=== PATIENT | male | born 1940 | race Caucasian/White ===

== ENCOUNTER 2017-02-21 21:22 | Observation (INO) | payer MEDICARE, OTHER ==
[2017-02-21] MEDS ORDERED: ACETAMINOPHEN 325 MG TABLET PO ONE (22:34)
[2017-02-21 22:35] LABS: BASOPHILS 0.5 % (0.0-2.0); EOSINOPHILS 0.2 % (0.0-6.0); HEMATOCRIT 29.3 % (42.0-54.0); HEMOGLOBIN 9.7 g/dL (14.0-18.0); LYMPHOCYTES 2.5 % (20.0-40.0); LYMPHOCYTES# 0.1 X 10^3uL (0.8-3.8); MEAN CELL VOLUME 90.1 fL (80.0-100.0); MEAN CORPUS. HGB CONCENTRATION 33.1 g/dL (32.0-36.0); MEAN CORPUSCULAR HEMOGLOBIN 29.9 pg (29.0-35.0); MEAN PLATELET VOLUME 9.1 fL (7.4-10.4); MONOCYTES 2.8 % (2.0-10.0); MONOCYTES# 0.1 X 10^3uL (0.2-1.0); NEUTROPHILS# 2.2 X 10^3uL (2.6-6.7); PLATELET COUNT 62 X 10^3uL (130-440); RED BLOOD COUNT 3.25 X 10^6uL (4.20-6.10); RED CELL DISTRIBUTION WIDTH 19.2 % (11.5-14.5); WHITE BLOOD COUNT 2.5 X 10^3uL (3.9-10.7)
[2017-02-21 22:38] LABS: LACTATE 1.6 mmol/L (0.7-2.1)
[2017-02-21 22:41] LABS: BLOOD UREA NITROGEN 15 mg/dL (9-20); CHLORIDE 102 mmol/L (98-107); CREATININE 0.6 mg/dL (0.7-1.3); EST GLOMERULAR FILTRATION RATE > 60 mL/min; GLUCOSE 164 mg/dL (70-100); POTASSIUM 3.9 mmol/L (3.5-5.1); SODIUM 138 mmol/L (137-145)
[2017-02-21 22:42] LABS: ALBUMIN 3.2 g/dL (3.5-5.0); ALKALINE PHOSPHATASE 108 U/L (38-126); ALT 31 U/L (21-72); AST 39 U/L (17-59); BILIRUBIN, DIRECT 0.1 mg/dL (0.0-0.4); BILIRUBIN, TOTAL 0.6 mg/dL (0.2-1.3); CALCIUM 8.2 mg/dL (8.4-10.2); TOTAL PROTEIN 6.9 g/dL (6.3-8.2)
[2017-02-21 22:43] LABS: LIPASE < 10 U/L (23-300)
[2017-02-21] MEDS ORDERED: HOME MEDICATION LIST NEEDED 1 EA EACH MISC ONE (22:57)
[2017-02-21] MEDS ORDERED: ACETAMINOPHEN 325 MG TABLET PO PRN (22:57)
[2017-02-21] MEDS ORDERED: PIPERACILLIN /TAZO 4.5 GM/10 ML VIAL IV ONE (22:59)
[2017-02-21] MEDS ORDERED: NORMAL SALINE ADDVANTAGE 100 ML IV ONE (22:59)
[2017-02-21] MEDS ORDERED: NORMAL SALINE 1,000 ML IV SCH (23:00)
[2017-02-21 23:19] LABS: LYMPHOCYTE % (Manual) 6 % (20.0-40.0); MONOCYTE % (Manual) 4 % (2.0-10.0); NEUTROPHIL % (Manual) 90 % (54.0-75.0)
[2017-02-21 23:20] LABS: PLATELET ESTIMATE DECREASED
--- NOTE | 2017-02-21 23:25 | ER NURSING DOCUMENTATION ---
Nurse's Notes [facility] Name:Silverio Booker Age:76 yrs Sex:Male :1940 Arrival Date:02/21/2017 Time:21:22 Bed1 Private MD:Radha Miller Diagnosis:Neutropenia;Fever Presentation: 02/21 21:25 Acuity: PABLO 3 21:41 Presenting complaint: Patient states: Pt finished last round of radiation today along with a saline infusion. He's been feeling run down today, achy and has had less of an appetite than usual. Pt states at home he had a "fever" of 102.7 and the it was back down to 98.0 and up again. PT has a wet cough which he has had for 5 weeks. Pt was hospitalized in September for a staph infection in his port, which was then removed cleaned out and a picc line was placed. Transition of care: Home. 21:41 Method Of Arrival: Private Vehicle Triage Assessment: 21:51 Pertinent positives: cough, headache. General: Appears in no apparent distress, Behavior is cooperative. Pain: Denies pain. EENT: Oral mucosa is dry. Neuro: Level of Consciousness is awake, alert, obeys commands. Cardiovascular: Capillary refill < 3 seconds Chest pain is denied. Respiratory: Airway is patent Respiratory effort is even, unlabored, Respiratory pattern is regular, symmetrical, Reports cough that is Denies shortness of breath. GI: Abdomen is non- distended Bowel sounds present X 4 quads. Denies diarrhea, nausea, vomiting. : No deficits noted. Derm: Skin is intact, is healthy with good turgor, Skin is pink, warm & dry. Historical: - Allergies: No known drug Allergies; - Home Meds: 1. acetaminophen 325 mg oral tab 1 tab every 4-6 hours as needed 2. ascorbate calcium oral 3. calcium carbonate 1,000 mg oral tab 4. hydrocodone-acetaminophen 7.5-500 mg/15 mL(15 mL) oral soln 15 mL every 4 hours as needed for pain 5. lorazepam 0.5 mg oral tab 1 tab 3 times per day 6. Zofran 8 mg oral tab 1 tab every 8 hours 7. Protonix 40 mg oral grps 1 packet once daily 8. Compazine Oral 10 mg tablet Q8H 9. Reclast 5mg/100ml - PMHx: ADENOCARCINOMA of GASTROESOPHAGEAL JUNCTION; MALIGNANT NEOPLASM OF PANCREAS; HYPOXIA; GERD; SHORT BOWEL; EMPHYSEMA; OSTEOPENIA; DYSPHAGEA; - PSHx: WHIPPLE - PANCREATECTOMY; Cholecysectomy; HERNIA REPAIR; FEEDING TUBE REPLACEMENT AND REMOVAL; - Tetanus: unknown. - Ebola Screening: : Patient negative for fever greater than or equal to 101.5 degrees Fahrenheit, and additional compatible Ebola Virus Disease symptoms. - Immunization history: Flu Vaccine < 1 year. - Social history: Smoking status: Patient states former smoker of tobacco. Screenin:34 Infectious Disease Risk None. Abuse screen: Denies threats or abuse. Denies injuries rh from another. Nutritional screening: Difficulty chewing/swallowing? Yes. Assessment: 22:34 See Triage Assessment done by same RN. rh Vital Signs: 21:54 BP 113 / 52; Pulse 81; Resp 20; Temp 98.3(O); Pulse Ox 96% on 2 lpm NC; Weight 49.44 rh kg; Height 5 ft. 7 in. (170.18 cm); Pain 2/10; 22:15 Temp 101.4(TE); rh 22:30 BP 123 / 59; Pulse 71; Resp 18; Pulse Ox 97% on 2 lpm NC; rh 23:22 BP 99 / 57; Pulse 68; Resp 18; Temp 100.9(TE); Pulse Ox 98% on 2 lpm NC; Pain 1/10; rh 21:54 Body Mass Index 17.07 (49.44 kg, 170.18 cm) rh ED Course: 21:10 Accessed PICC line and blood collected. Clean & dry. Dressing intact. Flushes easily. rh 21:24 Patient arrived in ED. ma1 21:24 Radha Miller MD is Private Physician. ma1 21:25 Esthela Lowe is Primary Nurse. rh 21:25 Triage completed. rh 21:30 Valuables Remains with patient Patient has correct armband on for positive rh identification. Placed in gown. Bed in low position. Call light in reach. Side rails up X 1. vehicle monitor technician on. Pulse ox on. NIBP on. 21:34 Notified ED Physician of patient's arrival and chief complaint. Dr. Hill notified. rh 21:35 Oxygen Oxygen administration via nasal cannula @ 2L/min. rh 21:51 Justin Hill MD is Attending Physician. jm 22:15 First set of blood cultures drawn by me. rh 22:24 Port Xray Completed. tt 22:25 CHEST; SINGLE VIEW [id number] In Process Unspecified. EDMS 22:35 Urine collected. Voided. rh 22:59 Second set of blood cultures drawn by me. rh 23:06 Dave Hahn MD is Admitting Physician. Administered Medications: 22:14 Drug: NS 0.9% 1000 ml; Route: IV; Rate: bolus; Site: left antecubital; rh 23:23 Follow up: IV Status: Infusion continued upon admission; IV Intake: 600ml rh 22:34 Drug: Acetaminophen 975 mg; Route: PO; rh 22:42 Follow up: Response: No adverse reaction rh 23:00 Drug: Zosyn - Piperacillin-Tazobactam 4.5 grams; Route: IVPB; Site: left antecubital; rh 23:23 Follow up: IV Status: Infusion continued upon admission; IV Intake: 50ml rh Point of Care Testing: Urine Dip: 22:35 pH: 6.0; ; Specific [place]: 1.030; Ketones: Negative; Glucose: Negative; Protein: rh Positive (+); Leukocytes: Negative; Nitrite: Negative ; Blood: Negative; Bilirubin: Negative ; Urobilinogen: Normal Intake: 23:23 IV: 600ml; Total: 600ml. rh 23:23 IV: 50ml; Total: 650ml. rh Output: 23:23 Urine: 50ml (Voided); Total: 50ml. rh Outcome: 23:06 Decision to Admit by Provider. 23:22 Admitted to Med/surg accompanied by nurse, via stretcher, with oxygen, with chart. rh 23:22 Condition: stable 23:22 Discharge Assessment: Patient awake, alert and oriented x 3. No cognitive and/or functional deficits noted. Patient verbalized understanding of disposition instructions. 23:22 Instructed on need to admit 23:24 Patient left the ED. rh Signatures: Dispatcher [employer] EDJustin Kiran MD MD jm Terriere, Tracy tt Hofsess, Rachel Sara Hinds
--- NOTE | 2017-02-21 23:25 | ER PHYSICIAN DOCUMENTATION ---
Physician Documentation [facility] Name:Silverio Booker Age:76 yrs Sex:Male :1940 Arrival Date:02/21/2017 Time:21:22 Bed1 Private MD:Radha Miller ED, John Disposition: 02/21/17 23:06 Admit ordered for Dave Hahn. Preliminary diagnosis are Neutropenia, Fever. - Bed requested for Medical/Surgical. - Condition is Fair. - Problem is new. - Symptoms are unchanged. 23 HR OBS Yes HPI: 02/21 22:09 This 76 yrs old Male presents to ER via Private Vehicle with complaints of jm Fever. 22:09 The patient reports fever, that was measured at 102 degrees Fahrenheit. Onset: The jm symptom(s)/episode began/occurred today. Modifying factors: there are no obvious modifying factors. Associated signs and symptoms: Pertinent positives: chills, malaise. Severity of symptoms: in the emergency department the symptoms are unchanged. The patient has not experienced similar symptoms in the past. The patient has been recently seen by a physician: earlier today, with different complaint(s), Had radiation done today. . 76 yo M w hx of esophageal and pancreatic cancer s/p chemo on Sunday and radiation today, here for a fever that has been up and down all day. Pt's only sx is generalized weakness and fatigue. . Historical: - Allergies: No known drug Allergies; - Home Meds: 1. acetaminophen 325 mg oral tab 1 tab every 4-6 hours as needed 2. ascorbate calcium oral 3. calcium carbonate 1,000 mg oral tab 4. hydrocodone-acetaminophen 7.5-500 mg/15 mL(15 mL) oral soln 15 mL every 4 hours as needed for pain 5. lorazepam 0.5 mg oral tab 1 tab 3 times per day 6. Zofran 8 mg oral tab 1 tab every 8 hours 7. Protonix 40 mg oral grps 1 packet once daily 8. Compazine Oral 10 mg tablet Q8H 9. Reclast 5mg/100ml - PMHx: ADENOCARCINOMA of GASTROESOPHAGEAL JUNCTION; MALIGNANT NEOPLASM OF PANCREAS; HYPOXIA; GERD; SHORT BOWEL; EMPHYSEMA; OSTEOPENIA; DYSPHAGEA; - PSHx: WHIPPLE - PANCREATECTOMY; Cholecysectomy; HERNIA REPAIR; FEEDING TUBE REPLACEMENT AND REMOVAL; - Tetanus: unknown. - Ebola Screening: : Patient negative for fever greater than or equal to 101.5 degrees Fahrenheit, and additional compatible Ebola Virus Disease symptoms. - Immunization history: Flu Vaccine < 1 year. - Social history: Smoking status: Patient states former smoker of tobacco. ROS: 22:14 Constitutional: Positive for fatigue, fever, malaise. jm 22:14 ENT: Negative for injury or acute deformity, rhinorrhea, sinus congestion, sinus pain, sore throat. 22:14 Cardiovascular: Negative for chest pain, edema. 22:14 Respiratory: Positive for cough, chronic. 22:14 Abdomen/GI: Negative for abdominal pain, nausea, vomiting, diarrhea. 22:14 Back: Negative for injury or acute deformity, decreased range of motion. 22:14 : Negative for urinary symptoms. 22:14 Skin: Negative for rash. 22:14 Neuro: Positive for weakness, Negative for dizziness, headache. 22:14 Psych: Negative for depression, drug dependence, alcohol dependence. 22:14 Hematologic/Lymphatic: Negative for anemia, abnormal bleeding. 22:14 All other systems are negative. Exam: 22:18 Constitutional: The patient appears in no acute distress, alert, awake, comfortable. jm 22:18 Eyes: Periorbital structures: appear normal, Conjunctiva: normal. 22:18 ENT: Mouth: is normal, Posterior pharynx: is normal. 22:18 Neck: ROM/movement: is normal, Lymph nodes: no appreciated lymphadenopathy. 22:18 Cardiovascular: Rate: normal, Rhythm: regular. 22:18 Respiratory: Respirations: normal, Breath sounds: are normal. 22:18 Abdomen/GI: Bowel sounds: normal, Palpation: abdomen is soft and non-tender. 22:18 Back: pain, is absent, CVA tenderness, is absent. 22:18 : CVA tenderness, is absent, Bladder: tenderness, is not appreciated. 22:18 Musculoskeletal/extremity: Pulses: are normal with no appreciated deficits, Weight bearing: able to fully bear weight. 22:18 Skin: Appearance: Color: normal in color, no rash present. 22:18 Neuro: Orientation: is normal, Mentation: is normal, Memory: is normal. 22:18 Psych: Behavior/mood is pleasant, cooperative, Affect is calm. Vital Signs: 21:54 BP 113 / 52; Pulse 81; Resp 20; Temp 98.3(O); Pulse Ox 96% on 2 lpm NC; Weight 49.44 rh kg; Height 5 ft. 7 in. (170.18 cm); Pain 2/10; 22:15 Temp 101.4(TE); rh 22:30 BP 123 / 59; Pulse 71; Resp 18; Pulse Ox 97% on 2 lpm NC; rh 23:22 BP 99 / 57; Pulse 68; Resp 18; Temp 100.9(TE); Pulse Ox 98% on 2 lpm NC; Pain 1/10; rh 21:54 Body Mass Index 17.07 (49.44 kg, 170.18 cm) rh MDM: 21:51 Patient medically screened. jm 22:20 Differential diagnosis: viral Infection, bacterial infection, neutropenic fever. Data jm reviewed: vital signs, nurses notes, old medical records, lab test result(s), radiologic studies, and as a result, I will admit patient. Test interpretation: by ED physician or midlevel provider: plain radiologic studies. Counseling: I had a detailed discussion with the patient and/or guardian regarding: the historical points, exam findings, and any diagnostic results supporting the discharge/admit diagnosis, lab results, radiology results, the need for further work-up and treatment in the hospital. 23:05 Physician consultation: Dave Hahn MD regarding admission, and will see patient segundo tomorrow. Admission orders: after a detailed discussion of the patient's condition and case, the admit orders are written by me. ED course: Pt w neutropenic fever. No source identified. Will admit w zosyn. . 02/21 22:43 Order name: BASIC METABOLIC PANEL; Complete Time: 11:39 EDMS 02/21 22:43 Order name: HEPATIC PANEL; Complete Time: 11:39 EDMS 02/21 22:43 Order name: LIPASE; Complete Time: 11:39 EDMS 02/21 22:43 Order name: LACTATE; Complete Time: 11:39 EDMS 02/21 22:47 Order name: CBC AUTO DIF, MDIF/RMOR IF IND; Complete Time: 11:39 EDMS 02/21 23:21 Order name: MANUAL DIFFERENTIAL; Complete Time: 11:39 EDMS 02/22 06:19 Order name: CBC AUTO DIF, MDIF/RMOR IF IND; Complete Time: 11:39 EDMS 02/22 06:25 Order name: BASIC METABOLIC PANEL; Complete Time: 11:39 [facility] 02/22 22:36 Order name: BLOOD CULTURE EDIL 02/22 22:36 Order name: BLOOD CULTURE EDIL 02/23 05:56 Order name: CBC W/ MANUAL DIFFERENTIAL EDIL 02/23 06:07 Order name: BASIC METABOLIC PANEL [facility] 02/21 22:25 Order name: CHEST; SINGLE VIEW [id number] EDIL 02/22 09:28 Order name: CHEST; SING[place] VIEW [id number]; Complete Time: 11:39 [facility] 02/21 22:04 Order name: I & O; Complete Time: 22:20 02/21 22:04 Order name: NPO; Complete Time: 22:20 02/21 22:04 Order name: Oxygen; Complete Time: 22:20 02/21 22:04 Order name: Place Patient On Monitor; Complete Time: 22:20 02/21 22:04 Order name: Pulse Ox Continuous; Complete Time: 22:20 02/21 22:05 Order name: Iv Saline Lock; Complete Time: 22:20 02/21 22:42 Order name: Urine Dip; Complete Time: 22:42 rh Dispensed Medications: 22:14 Drug: NS 0.9% 1000 ml; Route: IV; Rate: bolus; Site: left antecubital; rh 23:23 Follow up: IV Status: Infusion continued upon admission; IV Intake: 600ml rh 22:34 Drug: Acetaminophen 975 mg; Route: PO; rh 22:42 Follow up: Response: No adverse reaction rh 23:00 Drug: Zosyn - Piperacillin-Tazobactam 4.5 grams; Route: IVPB; Site: left antecubital; rh 23:23 Follow up: IV Status: Infusion continued upon admission; IV Intake: 50ml rh Point of Care Testing: Urine Dip: 22:35 pH: 6.0; ; Specific [place]: 1.030; Ketones: Negative; Glucose: Negative; Protein: rh Positive (+); Leukocytes: Negative; Nitrite: Negative ; Blood: Negative; Bilirubin: Negative ; Urobilinogen: Normal Signatures: Justin Hill MD MD jm Hofsess, Rachel rh
[2017-02-22] MEDS ORDERED: TAZO IV SCH (04:00)
[2017-02-22] MEDS ORDERED: NORMAL SALINE MINI IV SCH (04:00)
[2017-02-22] MEDS ORDERED: PIPERACILLIN IV SCH (04:00)
[2017-02-22 05:58] LABS: BASOPHILS 0.1 % (0.0-2.0); EOSINOPHILS 1.1 % (0.0-6.0); HEMATOCRIT 29.5 % (42.0-54.0); HEMOGLOBIN 9.6 g/dL (14.0-18.0); LYMPHOCYTES 3.9 % (20.0-40.0); LYMPHOCYTES# 0.1 X 10^3uL (0.8-3.8); MEAN CELL VOLUME 89.7 fL (80.0-100.0); MEAN CORPUS. HGB CONCENTRATION 32.5 g/dL (32.0-36.0); MEAN CORPUSCULAR HEMOGLOBIN 29.1 pg (29.0-35.0); MEAN PLATELET VOLUME 9.3 fL (7.4-10.4); MONOCYTES 4.3 % (2.0-10.0); MONOCYTES# 0.1 X 10^3uL (0.2-1.0); NEUTROPHILS 90.6 % (54.0-75.0); NEUTROPHILS# 1.9 X 10^3uL (2.6-6.7); RED BLOOD COUNT 3.28 X 10^6uL (4.20-6.10); RED CELL DISTRIBUTION WIDTH 19.6 % (11.5-14.5)
[2017-02-22 06:14] LABS: BLOOD UREA NITROGEN 13 mg/dL (9-20); CALCIUM 7.9 mg/dL (8.4-10.2); CHLORIDE 104 mmol/L (98-107); CREATININE 0.6 mg/dL (0.7-1.3); EST GLOMERULAR FILTRATION RATE > 60 mL/min; GLUCOSE 86 mg/dL (70-100); POTASSIUM 3.8 mmol/L (3.5-5.1); SODIUM 138 mmol/L (137-145)
[2017-02-22 06:17] LABS: WHITE BLOOD COUNT 2.1 X 10^3uL (3.9-10.7)
[2017-02-22 06:18] LABS: PLATELET COUNT 49 X 10^3uL (130-440)
[2017-02-22] MEDS ORDERED: HYDROcodone/APAP 7.5/325 MG 15 ML UDC PO PRN (08:42)
[2017-02-22] MEDS ORDERED: LORAZEPAM 2 MG/ML PO PRN (08:43)
[2017-02-22] MEDS ORDERED: ONDANSETRON HCL 4 MG/2 ML VIAL IV PRN (08:43)
--- NOTE | 2017-02-22 09:01 | RADIOLOGY REPORT ---
Two limited portable views of the chest are compared with prior films dated 11/13. The heart and vessels are stable and unremarkable. The lung suarez are clear. No infiltrate, fluid or pneumothorax is seen. IMPRESSION: Unremarkable limited portable views of the chest. MTDD
[2017-02-22] MEDS: PANTOPRAZOLE 40 MG PO SCH ×3 (10:33→21:24)
[2017-02-22] MEDS: NORMAL SALINE MINI IV SCH ×3 (10:35→21:24)
[2017-02-22] MEDS: TAZO IV SCH ×3 (10:35→21:24)
[2017-02-22] MEDS: PIPERACILLIN IV SCH ×3 (10:35→21:24)
[2017-02-22] MEDS ORDERED: PROCHLORPERAZINE MALEATE 10 MG PO PRN (10:43)
[2017-02-22] MEDS ORDERED: MAGIC MOUTHWASH MUCOUS MEM PRN (12:46)
[2017-02-22] MEDS: MAGIC MOUTHWASH MUCOUS MEM PRN ×2 (12:54→16:41)
[2017-02-22] MEDS ORDERED: MENTHOL 5.8 MG PO PRN (15:15)
--- NOTE | 2017-02-22 15:20 | HISTORY & PHYSICAL ---
DATE OF ADMISSION: 02/21/17 ADMITTING DIAGNOSIS: Fever of unknown origin. 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 He has completed FOLFOX with 4 cycles, and is currently receiving neoadjuvant chemotherapy with carboplatin and Taxol, which he last received on Sunday. He has also just completed radiation therapy with 50.4 graham and his last treatment was in fact yesterday, the day of admission. He has been suffering from expected side effects of fatigue, weakness, odynophagia, weight loss and poor appetite. He completed his therapy at [facility] yesterday for radiation, and when he got home he felt really weak and tired and took his temperature which was 102F. He has not really had any localizing symptoms. He has a slight headache. He has had a cough for several weeks which is nonproductive, and has underlying COPD. He denies any diarrhea. He denies any dysuria. He has not had ear pain , sinus symptoms and does have a sore throat, but relates that to his treatment. In the emergency room blood cultures were taken, and he was found to have mild leukopenia of 2500, but neutrophils were elevated at 90%, and lymphocytes were low. Flu swab was negative. Urine dip showed only protein and chest x-ray is not reported as showing any infiltrates. He was placed on Zosyn and admitted for further evaluation. This morning the patient states that he feels a little better although his throat is very sore and he continues to cough slightly. ALLERGIES: None known. MEDICATIONS AT HOME Ongoing chemotherapy with carboplatin, Taxol, with concomitant medical therapies for symptom alleviation. Mylicon 80 mg as needed. Acetaminophen 500 mg every 6 hours as needed. Vitamin C 1000 mg daily. Efudex and Emla topical creams. Hydrocodone APAP 7.5/325 mg liquid form every 4-6 hours as needed. Ativan 0.5 mg daily. Multivitamin 1 daily. Zofran ODT 4 mg as needed for nausea. Protonix 40 mg twice daily. PAST MEDICAL HISTORY 1. 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 Her-2 negative. Staging is 2B and is described as [id number]. As noted he is being treated with chemotherapy and with radiation therapy which was just completed. 2. 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 Successfully treated starting in 2011 with a Whipple procedure and adjuvant therapies. 3. Basal cell carcinoma of the right nasal labial fold removed in 2015. 4. Bilateral cataracts. 5. Closed fracture of the angle of the jaw in 1975. 6. History of GERD without esophagitis. 7. Seborrheic dermatitis. 8. 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 9. Emphysema which is mild and did not respond to treatment with inhalers. He uses nocturnal oxygen. 10. Short bowel syndrome. 11. Chronic thoracolumbar back pain. 12. Benign tremors. 13. Mediport infection and staph sepsis earlier in the year while in [place]. Port had to be removed. PAST SURGICAL HISTORY 1. Whipple procedure in 2011 including a cholecystectomy. 2. Inguinal hernia repair in 2000 on the right side. SOCIAL HISTORY: He has a history of alcohol abuse but does not drink very much at all now. Currently no consumption, and otherwise routinely 1 glass of wine twice weekly. He is . He has one son who is age 38. He is a former smoker, quit smoking when diagnosed with pancreatic cancer in 2011 and smoked a pack a day since age 24. No marijuana use or other drug use. He is no longer working. 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 FAMILY HISTORY: Father was killed in World War II and was a pilot control operator. Mother of some type of cancer in 1953 at age 34. He had a sister who with cancer at age 69 and a history of multiple cancers but he thinks she with lung cancer. REVIEW OF SYSTEMS GENERAL: He feels weak and tired. HEENT: He has no blurred vision. He has a mild diffuse headache. He has a sore throat as described above. He has no ear pain. He has not noted any swelling in his neck or lymph nodes. RESPIRATORY: He has a slight cough which is nonproductive. He denies any chest pain, palpitations. He has some chronic mild shortness of breath which is not worse. GASTROINTESTINAL: He denies any abdominal pain, diarrhea, nausea or vomiting at this time. He has not had any melena or hematochezia. GENITOURINARY: He denies any dysuria or hematuria. MUSCULOSKELETAL: He has generalized weakness rather than localized musculoskeletal weakness. He denies any lower extremity edema. PHYSICAL EXAMINATION VITAL SIGNS: Temperature initially was 38.3, temperature currently 37.1 degrees Centigrade, blood pressure 121/64, pulse 65, respirations 18, O2 saturation 92% on 2 liters. GENERAL: The patient appears fatigued and thin, but is alert and cooperative. HEENT: Normal inspection of the head and no evidence of trauma or lesions. Extraocular movements are intact. Pupils equal, round and reactive to light. Sclera are anicteric. Oropharynx slightly dry mucosa. Tongue is pale. No patches of thrush are noted. NECK: No jugular venous distention. No bruits. No adenopathy. No thyromegaly. No supraclavicular adenopathy is noted. LUNGS: Have decreased breath sounds throughout. Clear to auscultation and percussion. He does cough intermittently with a slightly wet sounding cough. CARDIOVASCULAR: Regular rate and rhythm without murmurs, rubs or gallops noted. PMI nondisplaced. ABDOMEN: Flat, soft, multiple surgical scars. No organomegaly. No masses palpated. EXTREMITIES: Calves are soft. Dorsalis pedis pulses are 2+. Tibialis posterior pulses are 2+. Negative Homans. Nontender. NEUROLOGIC: He is well oriented. Cranial nerves are grossly intact. Motor strength is 5/5. Deep tendon reflexes are diffusely decreased and 1+. Gait was not tested. Mental status: The patient seems perfectly clear and normal today and I have known him for several years. DATA: CBC shows a white count of 2100 with 91% neutrophils, 4% lymphocytes, 1% eosinophils, 0.1% basophils. Hemoglobin is decreased at 9.6, hematocrit at 29.5 , indices are normal. Platelet count is markedly decreased at 49,000. Chemistry is normal with a slightly low creatinine of 0.6 probably reflecting low muscle mass. Lactic acid in the emergency room was 1.6. Calcium was 7.9 but albumin is low at 3.2. Hepatic enzymes are normal. Lipase is low at less than 10. Chest x-ray verbal report is clear with evidence of emphysema. Urine was only positive for protein on dip. Blood cultures are pending. ASSESSMENT AND PLAN 1. Fever of unknown origin with mild leukopenia, but not true neutropenia currently. Blood cultures and other workup already done. The patient has been placed on Zosyn. There is no real evidence for infection. He does have a PICC line in the left upper arm, which appears normal without erythema. We will continue on Zosyn, monitor his temperature which has decreased this morning, and see if we have any indication of what the infection might be. 2. Gastroesophageal junction cancer currently doing well with good response to his therapies. He needs a soft full liquid type of diet at this time and needs to continue with Magic Mouthwash which has been prescribed recently. 3. Emphysema. The patient is not particularly short of breath or hypoxic. He does use oxygen at home at night only and is requiring some currently. 4. Generalized malnutrition due to cancer and treatment. The patient was doing quite well with Mighty Shakes and I will order those for him today. 5. The patient remains a full code at this time and we will continue that. 6. Preventive care. The patient actually declines flu shots. He is up to date with Pneumovax 2013 and Prevnar 2014. Tetanus shot was last done in 2008 and he did have a [facility]ostavax in 2010. [facility]
[2017-02-22] MEDS: HYDROCORTISONE 1% CREAM 28 APP/28 GM TUBE TOPICAL SCH (21:24)
[2017-02-22 23:48] VITALS: TEMP 98.4
[2017-02-23] MEDS: PIPERACILLIN IV SCH ×2 (04:12→10:45)
[2017-02-23] MEDS: TAZO IV SCH ×2 (04:12→10:45)
[2017-02-23] MEDS: NORMAL SALINE MINI IV SCH ×2 (04:12→10:45)
[2017-02-23 05:49] LABS: HEMATOCRIT 29.8 % (42.0-54.0); HEMOGLOBIN 9.8 g/dL (14.0-18.0); MEAN CELL VOLUME 90.7 fL (80.0-100.0); MEAN CORPUSCULAR HEMOGLOBIN 29.9 pg (29.0-35.0); MEAN PLATELET VOLUME 9.3 fL (7.4-10.4); PLATELET COUNT 59 X 10^3uL (130-440); RED BLOOD COUNT 3.28 X 10^6uL (4.20-6.10); RED CELL DISTRIBUTION WIDTH 19.3 % (11.5-14.5)
[2017-02-23 05:55] LABS: WHITE BLOOD COUNT 1.2 X 10^3uL (3.9-10.7)
[2017-02-23 06:05] LABS: BLOOD UREA NITROGEN 9 mg/dL (9-20); CALCIUM 7.9 mg/dL (8.4-10.2); CHLORIDE 105 mmol/L (98-107); CREATININE 0.6 mg/dL (0.7-1.3); EST GLOMERULAR FILTRATION RATE > 60 mL/min; GLUCOSE 80 mg/dL (70-100); POTASSIUM 3.8 mmol/L (3.5-5.1); SODIUM 138 mmol/L (137-145)
[2017-02-23 06:06] LABS: BAND% (Manual) 6 % (0.0-1.0); EOSINOPHIL % (Manual) 10 % (0.0-6.0); LYMPHOCYTE % (Manual) 12 % (20.0-40.0); MONOCYTE % (Manual) 12 % (2.0-10.0); NEUTROPHIL % (Manual) 60 % (54.0-75.0); PLATELET ESTIMATE DECREASED
[2017-02-23 06:38] VITALS: BP 124/68; PULSE 64; RESP 19; O2SAT 96
[2017-02-23] MEDS: MAGIC MOUTHWASH MUCOUS MEM PRN (08:09)
[2017-02-23] MEDS: HYDROCORTISONE 1% CREAM 28 APP/28 GM TUBE TOPICAL SCH (08:09)
[2017-02-23] MEDS: MULTIVITAMINS THERAPEUTIC 1 TABLET PO SCH ×2 (08:09→08:14)
[2017-02-23] MEDS: PANTOPRAZOLE 40 MG PO SCH (08:12)
--- NOTE | 2017-02-23 08:15 | DC SUMMARY: IM Note ---
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 Neutrophils were elevated at 90%, however. Lymphocytes were low at 11%. Chest xray, urinalysis, blood cultures and inspection of his PICC line site did not reveal a source. Patient defervesced with treatment with Zosyn. On day 2 of his hospitalization, he was afebrile, but his WBC had decreased to 1,200. Neutrophil count was now 60%. Patient was having extreme difficulty swallowing after his XRT, which is typical , he stated. He was placed on a full liquid diet with the addition of Mighty Shakes, and treated with Magic Mouthwash prior to his meals. His oropharynx did not show evidence of thrush. On day 2, he was improved. On the day of discharge, patient felt much improved. He was managing to eat more. His platelet count, which had been 49,000 increased to 59,000. He wished to go home, and I felt that he was safe to do so, since he and his manage his care well, and live close by the hospital if there were further issues over the weekend. - Time Spent with Patient Total time spent providing and/or coordinating discharge services: Time with patient DS: Greater than 30 minutes Discharge - Patient/Caregiver Discharge Instructions Activity Level: As tolerated Diet: Soft/full liquids with Ensure and Boost as tolerated, until swallowing improves Follow up: [facility] TIRADO [] - 02/26/17 10:00 am Overall discharge status: patient is progressing back to baseline Home Medications: Amoxicillin/Potassium Clav [Augmentin 125-31.25 mg/5 ml] 35 ml PO BID #550 ml Disposition: HOME, SELF-CARE Discharge Summary Data - Medication History Medication History: Home Medications Calcium Carbonate [Calcium] 500 mg PO BID 02/22/17 Hydrocodone Bit/Acetaminophen [Hydrocodon-Acetamin 7.5-325/15] 15 ml PO Q6H PRN 02/22/17 Hydrocortisone 1% Cream [Cortisone 1% Cream*] 1 michael TOPICAL BID 02/22/17 LORazepam [Ativan*] 0.5 - 1 mg PO Q6H PRN 02/22/17 Mag&Al/Sim/Diphenhyd/Lidocaine [First-Mouthwash Blm Suspension] 5 - 15 ml MM Q3H PRN 02/22/17 Menthol [[place]] 5.8 mg MM PRN PRN 02/22/17 Multivitamins,Therapeutic [Thera] 1 tab PO DAILY 02/22/17 Ondansetron HCl [Zofran] 8 mg PO Q8H PRN 02/22/17 Pantoprazole Sodium [Protonix] 40 mg PO BID 02/22/17 proCHLORPERazine MALEATE [Compazine] 10 mg PO Q8H PRN 02/22/17 Inpatient Medications 02/22/17 08:42 HYDROcodone/APAP 7.5/325 MG [NORCO ELIXIR 7.5/325/15ml] 15 ml PO Q3H PRN 02/22/17 08:43 LORazepam [Ativan Oral Concentrate] 0.5 mg PO Q6H PRN Ondansetron HCl [Zofran] 4 mg IV Q6H PRN 02/22/17 09:00 Pantoprazole [Protonix Oral Susp] 40 mg PO BID 02/22/17 10:00 Piperacillin /Tazo [Zosyn 4.5 Gram Vial] 4.5 gm Normal Saline Mini-Bag+ [ Sodium Chloride 100 ml Mini-Bag Plus] 100 ml IV Q6H 02/22/17 12:47 Magic Mouthwash 5 - 15 ml MUCOUS MEM Q3H PRN 02/22/17 13:15 proMETHazine HCL [Phenergan] 12.5 mg PO Q8H PRN 02/22/17 15:15 Menthol [[place]] 5.8 mg PO PRN PRN 02/22/17 21:00 Hydrocortisone 1% Cream [Cortisone 1% Cream] 1 michael TOPICAL BID 02/23/17 09:00 Multivitamins,Therapeutic [Thera] 1 tab PO DAILY Procedures and tests throughout hospitalization: Completed Lab Orders 02/23/17 05:30 BASIC METABOLIC PANEL [CHEM] AMDRAW CBC W/ MANUAL DIFFERENTIAL [HEM] AMDRAW Pending Orders 02/22/17 08:01 Miscellaneous Care Order . 02/22/17 08:41 Mighty Shake Supplement . 02/22/17 08:42 HYDROcodone/APAP 7.5/325 MG [NORCO ELIXIR 7.5/325/15ml] 15 ml PO Q3H PRN 02/22/17 08:43 LORazepam [Ativan Oral Concentrate] 0.5 mg PO Q6H PRN Ondansetron HCl [Zofran] 4 mg IV Q6H PRN 02/22/17 09:00 Pantoprazole [Protonix Oral Susp] 40 mg PO BID 02/22/17 10:00 Piperacillin /Tazo [Zosyn 4.5 Gram Vial] 4.5 gm Normal Saline Mini-Bag+ [ Sodium Chloride 100 ml Mini-Bag Plus] 100 ml IV Q6H 02/22/17 12:47 Magic Mouthwash 5 - 15 ml MUCOUS MEM Q3H PRN 02/22/17 13:15 proMETHazine HCL [Phenergan] 12.5 mg PO Q8H PRN 02/22/17 15:15 Menthol [[place]] 5.8 mg PO PRN PRN 02/22/17 21:00 Hydrocortisone 1% Cream [Cortisone 1% Cream] 1 michael TOPICAL BID 02/22/17 Breakfast full [Full Liquid] [DIET] 02/23/17 09:00 Multivitamins,Therapeutic [Thera] 1 tab PO DAILY Labs on day of discharge: Labs from last 24 hours 02/23/17 05:30 WBC 1.2 L* RBC 3.28 L Hgb 9.8 L Hct 29.8 L MCV 90.7 MCH 29.9 MCHC 33.0 RDW 19.3 H Plt Count 59 L MPV 9.3 Total Counted 100 Neutrophils % (Manual) 60 Band Neuts % (Manual) 6 H Lymphocytes % (Manual) 12 L Atypical Lymphs % (Man) 0 Monocytes % (Manual) 12 H Eosinophils % (Manual) 10 H Platelet Estimate Decreased Anisocytosis 10-19% of cells Sodium 138 Potassium 3.8 Chloride 105 Carbon Dioxide 26 BUN 9 Creatinine 0.6 L GFR Calculation > 60 Glucose 80 Calcium 7.9 L IM: Discharge Physical Exam - I&O/Vital Signs I&O: Intake & Output 02/22/17 02/23/17 02/23/17 21:59 05:59 13:59 Intake Total 637 750 Output Total 750 320 Balance -113 430 Intake: IV 700 Left Basilic 700 Oral 637 50 Output: Urine 750 320 Other: Urine Appearance Clear Urine Color Yellow Stool Size Moderate Large Stool Characteristics Formed Hard Black Voiding Method Toilet # Bowel Movements 1 1 Vital Signs: Last Vital Signs Temp 36.9 C 02/23/17 06:37 Pulse 64 02/23/17 06:37 Resp 19 02/23/17 06:37 BP 124/68 02/23/17 06:37 Pulse Ox 96 02/23/17 06:37 Oxygen Flow Rate 0.5 Oxygen Delivery Method Nasal Cannula - Constitutional General appearance: Present: thin - Head Head exam: Present: normal inspection - Eye Eye exam: Present: EOMI. Absent: scleral icterus Pupils: Present: PERRL - ENT ENT exam: Present: mucous membranes moist, normal oropharynx (pale tongue) - Neck Neck exam: Absent: lymphadenopathy - Respiratory Respiratory exam: Present: decreased breath sounds (right base) - Cardiovascular Cardiovascular exam: Present: RRR (distant S1S2) - GI/Abdominal GI/Abdominal exam: Present: hypoactive bowel sounds, soft. Absent: tenderness - Extremities Exam Extremities exam: Absent: calf tenderness, edema - Neurological Exam Neurological exam: Present: normal gait - Psychiatric Psychiatric exam: Present: normal affect - Allied Health Notes Allied health notes reviewed: nursing
== END 2017-02-23 08:29 | disposition home or self-care (01) ==
LOC: ER 21:22 → IN 23:08
PROVIDERS: ADMIT Family Medicine; ATTEND Internal Medicine
DX: R50.9 Fever, unspecified (principal); D70.9 Neutropenia, unspecified; D70.1 Agranulocytosis secondary to cancer chemotherapy; C16.0 Malignant neoplasm of cardia; Z85.828 Personal history of other malignant neoplasm of skin; M81.0 Age-related osteoporosis without current pathological fracture; K21.9 Gastro-esophageal reflux disease without esophagitis; M54.5 Low back pain; J43.9 Emphysema, unspecified; Z99.81 Dependence on supplemental oxygen; Z79.899 Other long term (current) drug therapy
CPT/HCPCS: 71010; 80048; 80076; 83605; 83690; 85007; 85025; 85027; 87040; 93041; 96361; 96365; 96366; 99217; 99219; 99285; G0378; J1642; J2543; J7030